=== PATIENT | male | born 1975 | race Caucasian/White ===

== ENCOUNTER 2021-12-15 19:37 | Emergency (ER) | payer SELFPAY ==
[~2021-12-15] VITALS: Ht 180 cm; Wt 122.0 kg
[2021-12-15] MEDS ORDERED: PENI500T PO (20:02)
--- NOTE | 2021-12-15 20:02 | ED EENT ---
History of Present Illness General Chief Complaint: Dental Problems/Pain Stated Complaint: TOOTH PAIN Nursing Triage Note: Pt reports dental pain x5 days, R bottom molar and he states that the side of the tooth has broken off. He was unable to get in to see a dentist. Pt has taken tylenol and ibuprofen with no relief. 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 Patient states part of his tooth broke off. He is unable to see a dentist until returning home from his truck route. He is taking ibuprofen and Tylenol prior to ED arrival without relief. No dysphonia hoarseness drooling or dysphagia. No other symptoms or complaints Timing/Duration: gradual Severity: moderate Location: other Prearrival Treatment: other Modifying Factors: Improves With Other Associated Symptoms: other Allergies and Home Medications Allergies Coded Allergies: No Known Drug Allergies (Unverified , 12/15/21) Patient Home Medication List Home Medication List Reviewed: Yes Review of Systems Review of Systems Constitutional: see HPI Eyes: See HPI Ears: See HPI Nose: see HPI Mouth: see HPI Throat: see HPI Respiratory: see HPI Cardiovascular: see HPI Gastrointestinal: see HPI Musculoskeletal: see HPI Past [id number] Hx Patient Social History Tobacco Use?: Yes Tobacco type used: Cigars Smoking Status: Current Everyday Smoker Use of E-Cig and/or Vaping dev: No Substance use?: No Alcohol Use?: No Pt feels they are or have been: No Immunizations Up To Date Influenza Vaccine Up-to-Date: No; Not Current Physical Exam Vital Signs Vital Signs - First Documented 12/15/21 19:40 Temp 35.5 Pulse 110 Resp 14 B/P (MAP) 150/101 (117) Pulse Ox 99 O2 Delivery Room Air Height, Weight, BMI Height: '" Weight: lbs. oz. kg; 37.00 BMI Method: General Appearance: mild distress Ears: bilateral ear auricle normal Nose: normal inspection Mouth/Throat: other (Right lower mandibular pain tenderness and swelling, no fluctuance erythema or warmth. Right premolar dental erosions with widespread caries. No sublingual swelling) Progress/Results/Core Measures Results/Orders Vital Signs/I&O 12/15/21 19:40 Temp 35.5 Pulse 110 Resp 14 B/P (MAP) 150/101 (117) Pulse Ox 99 O2 Delivery Room Air Blood Pressure Mean: 117 Departure Communication (Admissions) Dental caries with erosion and soft tissue facial swelling. No fluctuance or evidence of soft tissue abscess. Antibiotics prescribed. Narcotic pain medication declined per patient Impression Primary Impression: Dental caries Additional Impression: Right facial swelling Disposition: HOME, SELF-CARE Condition: Stable Departure-Patient Inst. Decision time for Depature: 20:00 Patient Instructions: Tooth Decay, Adult (DC) Add. Discharge Instructions: Please fill antibiotics upon leaving the emergency department. Continue ibuprofen and Tylenol for treatment of dental pain. Follow-up with dentist as scheduled. All discharge instructions reviewed with patient and/or family. Voiced understanding. Scripts Penicillin V Potassium (Penicillin V Potassium) 500 Mg Tablet 500 MG PO QID, #40 TAB Prov: EVANGELINA OHARA DO 12/15/21 EVANGELINA OHARA DO Dec 15, 2021 20:02
[2021-12-15 20:11] VITALS: BP 138/100
[2021-12-15] MEDS ORDERED: AUGMENTIN 875 MG TAB (AMOXICILLIN/CLAVULANATE) PO ONE (20:15)
== END 2021-12-15 20:13 | disposition home or self-care (01) ==
LOC: ER FS 19:39
DX: K02.9 Dental caries, unspecified (principal); R22.0 Localized swelling, mass and lump, head
CPT/HCPCS: 99283